=== PATIENT | male | born 1945 | race Asian ===

== ENCOUNTER 2019-01-02 15:14 | Emergency (ER) | payer OTHER ==
[~2019-01-02] VITALS: Ht 172.7 cm; Wt 73.5 kg
[~2019-01-02 15:14] MED LIST: ASPIR 8181 MG PO
[2019-01-02 15:19] VITALS: Ht 172.7 cm; Wt 73.5 kg
[2019-01-02 17:29] LABS: microscopic required? YES; urine erythrocyte TRACE (NEGATIVE)
[2019-01-02 17:45] LABS: CALCIUM 9.6 mg/dL (8.5-10.1); CARBON DIOXIDE 33.5 mmol/L (21-32); CHLORIDE SERUM 100 mmol/L (98-107); CREATININE SERUM 1.3 mg/dL (0.7-1.3); GLUCOSE SERUM 143 mg/dL (74-106); SODIUM SERUM 138 mmol/L (136-145)
[2019-01-02 17:48] LABS: BASOPHIL % 0.4 % (0-2); PLATELET COUNT 307 x10^3mcL (130-400); RED CELL DISTRIBUTION WIDTH 13.4 % (11.5-14.5)
[2019-01-02 17:50] LABS: ALBUMIN 3.7 g/dL (3.4-5.0); ALKALINE PHOSPHATASE 71 U/L (46-116); ALT/SGPT 43 U/L (16-63); AST/SGOT 21 U/L (15-37); BILIRUBIN TOTAL 0.4 mg/dL (0.20-1.00); LIPASE 447 IU/L (73-393); TOTAL PROTEIN, SERUM 8.2 g/dL (6.4-8.2)
[2019-01-02 20:48] VITALS: BP 135/87
== END 2019-01-02 20:18 | disposition home or self-care (01) ==
LOC: ED 15:14
PROVIDERS: Emergency Medicine
DX: N45.3 Epididymo-orchitis (principal); N39.0 Urinary tract infection, site not specified; R74.8 Abnormal levels of other serum enzymes; I10 Essential (primary) hypertension; E11.9 Type 2 diabetes mellitus without complications
CPT/HCPCS: 36415; J1885; J2270

== ENCOUNTER 2019-01-07 12:18 | Inpatient (IN) | payer OTHER ==
[~2019-01-07] VITALS: Ht 175.3 cm; Wt 83.5 kg
[2019-01-07 12:21] VITALS: Ht 175.3 cm; Wt 83.5 kg
--- NOTE | 2019-01-07 12:34 | NUR ---
PT BROUGHT IN TO ED BY SON WITH C/O ABDOMINAL BLOOD IN URINE, PT HAS LAB AND ULTRASOUND ORDERS, ALSO PT C/O SYNCOPAL EPISODE LAST NIGHT. DENIES CP, SOB, NAUSEA VOMITING OR HEAD INJURY. PT PROVIDED URIN SPECIMEN, NO VISIBLE BLOOD NOTED. SON IS INTERPRETING, FOR PT DOES NOT SPEAK EQUATORIAL GUINEAN. AT BEDSIDE PT IS AAOX4, RESPS E/U, SKIN IS PINK, WARN AND DRY. PERRLA. ALSO, PT IS CALM AND COOPERATIVE. PT AMBULATED FROM LOBBY TO ROOM WITH STEADY GAIT AND NO ASSIST. PT PLACED ON MONITOR. PT ORIENTED TO ROOM, USE OF CALL FIELD AND BED IN LOWEST POSITION. BED RAIL IS UP X1 FOR SAFETY.
[2019-01-07 13:07] LABS: BASOPHIL % 0.4 % (0-2); PLATELET COUNT 282 x10^3mcL (130-400); RED CELL DISTRIBUTION WIDTH 13.3 % (11.5-14.5)
[2019-01-07 13:10] LABS: CALCIUM 9.6 mg/dL (8.5-10.1); CARBON DIOXIDE 25.6 mmol/L (21-32); CHLORIDE SERUM 97 mmol/L (98-107); CREATININE SERUM 1.4 mg/dL (0.7-1.3); GLUCOSE SERUM 268 mg/dL (74-106); POTASSIUM SERUM 3.7 mmol/L (3.5-5.1); SODIUM SERUM 135 mmol/L (136-145)
[2019-01-07 13:15] LABS: ALBUMIN 3.8 g/dL (3.4-5.0); ALKALINE PHOSPHATASE 77 U/L (46-116); ALT/SGPT 31 U/L (16-63); AST/SGOT 19 U/L (15-37); BILIRUBIN TOTAL 0.81 mg/dL (0.20-1.00)
[2019-01-07 13:25] LABS: TOTAL PROTEIN, SERUM 8.8 g/dL (6.4-8.2)
[2019-01-07 15:05] VITALS: BP 144/73
--- NOTE | 2019-01-07 15:32 | NUR ---
RECEIVED PATIENT VIA GURNEY FROM ED RN. PATIENT AMBULATED TO BED WITHOUT ASSISTANCE. PATIENT A/0 X4 ON RA, IV TO RIGHT AC, SITE WNL. TELE MONITOR #9 PLACED, SINUS CHRISTIAN WITH PVC'S. ASSESSED PAITENT. COMPLAINING OF MILD PAIN TO GROIN AND UPON URINATION. ADMITTED FOR UTI AND SEPSIS. ASSISTED PATIENT INTO GOWN, SCD'S PLACED. BED IN LOWEST POSITION CALL LIGHT WITHIN REACH. WILL CONTINUE TO MONITOR
--- NOTE | 2019-01-07 16:39 | NUR ---
BS RESULT 191. 3UNIT INSULIN COVERAGE NEEDED. COSIGNED BY RACHELE BURNETT. SQ TO RIGHT UPPER ARM. PATIENT RESTING COMFORTABLY AT THIS TIME. DENIES PAIN, CALL LIGHT WITHIN REACH
[2019-01-07 17:13] VITALS: BP 136/63
--- NOTE | 2019-01-07 18:35 | NUR ---
PATEINT SITTING UP IN BED TO EAT. NO COMPLAINTS AT THIS TIME.
--- NOTE | 2019-01-07 20:00 | NUR ---
RECEIVED PT IN BED, RESTING QUIETLY. ALERT AND ORIENTED. ABLE TO VERBALIZE NEEDS. DENIES HEADACHE/DIZZINESS. RESP. EVEN AND UNLABORED. LUNG SOUNDS CLEAR BILAT. ON ROOM AIR, NO ACUTE DISTRESS NOTED. ON TELE 9, SB, WITH HR 58 AT THIS TIME, DENIES CP OR ANY DISCOMFORT . IVF, NS AT 150ML/HR, NS BOLUS FROM ER, THEN TO START NS AT 70ML/HR. SITE CLEAR. VOIDING FREELY. ASSISTED WITH HS CARE. CALL LIGHT WITHIN REACH. WILL CONTINUE TO MONITOR.
[2019-01-07 20:57] VITALS: BP 136/63
--- NOTE | 2019-01-07 23:02 | NUR ---
DUE MEDS GIVEN ORDERED, FERNANDO. WELL. NO COMPLAINTS NOTED AT THIS TIME. CALL LIGHT WITHIN REACH. WILL CONTINUE TO MONITOR.
--- NOTE | 2019-01-08 01:07 | NUR ---
RESTING QUIETLY WITH EYES CLOSED, APPEARS ASLEEP, EASILY AROUSABLE. RESP. EVEN AND UNLABORED. NO ACUTE DISTRESS NOTED. WILL CONTINUE TO MONITOR.
[2019-01-08 05:39] VITALS: BP 140/68
--- NOTE | 2019-01-08 06:16 | NUR ---
SLEPT MOST OF THE NIGHT. NO SIGNIFICANT CHANGE NOTED IN PT,S CONDITION. AFEBRILE AND VITAL SIGNS STABLE. RESP. EVEN AND UNLABORED, ON ROOM AIR, NO ACUTE DISTRESS NOTED. DENIES CHEST PAIN OR ANY DISCOMFORT AT THIS TIME. IVF INTACT AND INFUSING WELL, SITE CLEAR. VOIDING CLEAR YELLOW COLOR URINE.CALL LIGHT WITHIN REACH. WILL CONTINUE TO MONITOR.
[2019-01-08 06:34] LABS: BASOPHIL % 0.4 % (0-2); PLATELET COUNT 225 x10^3mcL (130-400); RED CELL DISTRIBUTION WIDTH 13.3 % (11.5-14.5)
[2019-01-08 07:08] LABS: CALCIUM 8.7 mg/dL (8.5-10.1); CARBON DIOXIDE 22.1 mmol/L (21-32); CHLORIDE SERUM 105 mmol/L (98-107); GLUCOSE SERUM 140 mg/dL (74-106); POTASSIUM SERUM 4.2 mmol/L (3.5-5.1); SODIUM SERUM 141 mmol/L (136-145)
--- NOTE | 2019-01-08 08:00 | NUR ---
PATIENT RECEIVED ALERT AND ORIENTED AND DENIES PAIN AT THIS TIME. IV INTACT AND PATIENT AHS BEEN URINATING WITHOUT DIFFICULTY. [facility] 500[facility] OF GARTH URINE. NO SEDIMENT OR HEMATURIA NOTED. ELOISA LOWE NOTED LABS OF WBC AT 12.9, AND H AND H OF 9.6/29, AND NA AT 140. PATIENT HAS BEEN ON ROCEPHIN AND VANCO AND NO ADVERSE REACTION NOTED. PATIENT WITH HISTORY OF ACUTE CORONARY SYNDROME. PATIENT HAS VITALS AT THIS TIME AT 98.4, 72, 18, 140/68, 96%. PULSES PALBLE AND NO EDEMA NOTED. DENIES FEELING FAINT OR ANY SYNOCOPAL EPISODE. LAST BLOOD SUGAR AT 138. NOTED PREVIOUS TREATMENT FOR UTI PRIOR THIS HOSPITALIZATION,. THE UA WAS NEGATIVE. WILL CONTINUE TO MONITOR INDICATED.
[2019-01-08 08:50] VITALS: BP 126/62
--- NOTE | 2019-01-08 13:00 | NUR ---
THE ULTRASOUND OF [facility] BLADDER/ABDOMEN SHOWS NEGATIVE SO FAR. PATIENT HAS BEEN DENYING PAIN WITH URINATION AND NO HEMATURIA NOTED.
--- NOTE | 2019-01-08 13:02 | NUR ---
PATIENT HAVING AN ECHO AT THIS TIME. PATIENT HAS BLOOD SUGAR OF 170 AND INSULIN COVERAGE WAS GIVEN. NO COMPLAINTS OF PAIN AT THIS TIME.
[2019-01-08 13:12] VITALS: BP 125/60
--- NOTE | 2019-01-08 15:08 | NUR ---
ULTRASOUND OF THE BLADDER APPEARS NEGATIVE ON THE READING IN THE COMPUTER. THE URINALYSIS IS ALSO NEGATIVE. PATIENT DENIES PAIN AT THIS TIME. WILL CONTINUE TO MONITOR INDICATED.
--- NOTE | 2019-01-08 15:33 | NUR ---
ADVISED THE PATIENT FOR NEED OF URINE SAMPLE AND GAVE NEW URINAL AND ADVISED TO CLL AND STAFF WILL SEND TO THE LAB.
[2019-01-08 17:25] LABS: microscopic required? NO
[2019-01-08 17:47] LABS: urine erythrocyte NEGATIVE (NEGATIVE)
--- NOTE | 2019-01-08 18:10 | NUR ---
GIOVANNILOD SUGAR AT DINNER AT 160 AND GAVE THREE UNITS OF REGULAR.
[2019-01-08 18:41] VITALS: BP 132/61
--- NOTE | 2019-01-08 19:39 | NUR ---
PT RECIEVED AAO REG RESP NO SOB V/S STABLE,KEPT CLEAN AND DRY TO TOUCH,IV INFUSING WELL WITH THE SITE PATENT AND INTACT,PT ON TELE MONITOR AND IN SINUS CHRISTIAN WITH PVCS,NO CHEST PAIN AT THIS TIME,KEPT CLEAN AND DRY TO TOUCH,CALL LIGHT EASY REACHED AND WILL CONTINUE TO MONITOR.
[2019-01-08 20:52] VITALS: BP 126/59
[2019-01-09 05:01] VITALS: BP 126/58
--- NOTE | 2019-01-09 06:13 | NUR ---
PT HAD A RESTING NIGHT NO CHANGE AT THID TIME AND WILL CONTINUE TO MONOITOR.
[2019-01-09 06:24] LABS: CALCIUM 8.6 mg/dL (8.5-10.1); CARBON DIOXIDE 26.3 mmol/L (21-32); CHLORIDE SERUM 107 mmol/L (98-107); GLUCOSE SERUM 130 mg/dL (74-106); POTASSIUM SERUM 4.1 mmol/L (3.5-5.1); SODIUM SERUM 140 mmol/L (136-145)
[2019-01-09 06:27] LABS: BASOPHIL % 0.5 % (0-2); PLATELET COUNT 231 x10^3mcL (130-400); RED CELL DISTRIBUTION WIDTH 13.5 % (11.5-14.5)
--- NOTE | 2019-01-09 07:15 | NUR ---
RECEIVED BEDSIDE REPORT FROM CLINICAL DOCUMENTATION SPEC NURSE AT THIS TIME. PATIENT RESTING COMFORTABLY IN BED. NO APPARENT DISTRESS OR DISCOMFORT NOTED. BREATHING EVEN AND UNLABORED. NO RESPIRATORY DISTRESS NOTED. NO INDICATION OF SHORTNESS OF BREATH. PATIENT DENIES CHEST PAIN/PRESSURE AT THIS TIME. IV PATENT AND INTACT. ALL QUESTIONS AND CONCERNS ADDRESSED. ALL NEEDS ATTENDED TO. WILL CONTINUE TO MONITOR
[2019-01-09 09:11] VITALS: BP 149/74
--- NOTE | 2019-01-09 10:19 | NUR ---
ALL MORNING MEDICATIONS ADMINISTERED. PATIENT TOLERATED WELL. NO ADVERSE EFFECT NOTED. ALL NEEDS ATTENDED TO. WILL CONTINUE TO MONITOR
--- NOTE | 2019-01-09 11:37 | NUR ---
REPORTED TO PATIENCE REYES PATIENT POTASSIUM 4.1. PER PATIENCE REYES SHE WILL D/C POTASSIUM 40MEQ ORDER. AWAITING ORDER TO D/C. WILL HOLD MEDICATION.
[2019-01-09 12:33] VITALS: BP 143/69
--- NOTE | 2019-01-09 12:52 | NUR ---
BLOOD SUGAR 204. 6 UNITS INSULIN REQUIRED (SEE EMAR). PATIENT TOLERATED WELL. NO ADVERSE EFFECTS NOTED. ALL NEEDS ATTENDED TO. WILL CONTINUE TO MONITOR
--- NOTE | 2019-01-09 13:46 | NUR ---
IV TO RIGHT AC ACCIDENTALLY PULLED OUT. NEW IV TO LEFT WRIST PLACE. PATENT AND INTACT WITH GOOD BLOOD RETURN. WILL CONTINUE TO MONITOR
--- NOTE | 2019-01-09 17:00 | NUR ---
BLOOD SUGAR 103 WITH NO INSULIN COVERAGE REQUIRED. ALL NEEDS ATTENDED TO. WILL CONTINUE TO MONITOR
[2019-01-09 17:44] VITALS: BP 138/63
--- NOTE | 2019-01-09 19:25 | NUR ---
PATIENT RESTING COMFORTABLY IN BED. NO APPARENT DISTRESS OR DISCOMFORT NOTED. BREATHING EVEN AND UNLABORED. IV PATENT AND INTACT. ALL QUESTIONS AND CONCERNS ADDRESSED. SAFETY PRECAUTIONS IN PLACE. ENDORSED ALL CARE TO FORESTRY INSTRUCTOR NURSE
--- NOTE | 2019-01-09 19:56 | NUR ---
Awake and verbally responsive. No respiratory distress noted on room air. Denies pain. Denies n/v. Will cont.to monitor. Call light within reach.
[2019-01-09 21:19] VITALS: BP 142/65
--- NOTE | 2019-01-10 04:03 | NUR ---
Afebrile. No significant change in condition noted. Medicated as ordered for c/o testicular pain, toradol IV given with relief. In no apparent distress. Voiding, ambulating.
[2019-01-10 06:04] VITALS: BP 145/61
[2019-01-10 06:31] LABS: BASOPHIL % 0.6 % (0-2); PLATELET COUNT 238 x10^3mcL (130-400); RED CELL DISTRIBUTION WIDTH 13.6 % (11.5-14.5)
[2019-01-10 06:36] LABS: CALCIUM 9.2 mg/dL (8.5-10.1); CARBON DIOXIDE 26.5 mmol/L (21-32); CHLORIDE SERUM 104 mmol/L (98-107); GLUCOSE SERUM 117 mg/dL (74-106); POTASSIUM SERUM 4.3 mmol/L (3.5-5.1); SODIUM SERUM 140 mmol/L (136-145)
--- NOTE | 2019-01-10 08:03 | NUR ---
ASLEEP ON INITAL ROUNDS AT 0730. HAVING BREAKFAST AT THIS TIME. NS AT 70CC/HR INFUSING PERIPHERALLY. INSTRUCTED TO CALL RN FOR ANY NEED. CALL FIELD WITHIN REACH.
[2019-01-10 08:48] VITALS: BP 143/60
--- NOTE | 2019-01-10 12:04 | NUR ---
DENIES ANY DISCOMFORT.
--- NOTE | 2019-01-10 14:49 | NUR ---
RECEIVED PT IN BED. RESP EQUAL AND UNLABORED, NO DISCOMFORT REPORTED. WILL CONTINUE TO MONITOR
[2019-01-10 17:59] VITALS: BP 150/64
--- NOTE | 2019-01-10 18:49 | NUR ---
PT IN BED. RESP EQUAL AND UNLABORED, NO DISTRESS REPORTED. WILL ENDORSE TO ONCOMING SHIFT
--- NOTE | 2019-01-10 20:02 | NUR ---
PT RECIEVED AAO REG RESP NO SOB V/S STABLE,IV INFUDING WELL WITH THE SITE PATENT AND INTACT,NO PAIN REPORTED AT THIS TIME,KEPT CLEAN AND DRY TO TOUCH,CALL LIGHT EASY REACHED AND WILL CONTINUE TO MONITOR.
[2019-01-10 21:43] VITALS: BP 137/56
--- NOTE | 2019-01-11 01:18 | NUR ---
PT SLEEOING AT HTIS TIME,WILL CONTINUE TO MONITOR.
[2019-01-11 05:37] VITALS: BP 133/52
[2019-01-11 06:17] LABS: BASOPHIL % 0.2 % (0-2); PLATELET COUNT 238 x10^3mcL (130-400); RED CELL DISTRIBUTION WIDTH 13.3 % (11.5-14.5)
--- NOTE | 2019-01-11 06:24 | NUR ---
PT HAD A RESTING NIGHT NO CHANGE AT THIS TIME,WILL CONTINUE TO MONITOR.
[2019-01-11 06:47] LABS: CALCIUM 8.8 mg/dL (8.5-10.1); CARBON DIOXIDE 29.4 mmol/L (21-32); CHLORIDE SERUM 106 mmol/L (98-107); CREATININE SERUM 0.9 mg/dL (0.7-1.3); GLUCOSE SERUM 132 mg/dL (74-106); POTASSIUM SERUM 4.1 mmol/L (3.5-5.1); SODIUM SERUM 142 mmol/L (136-145)
--- NOTE | 2019-01-11 07:57 | NUR ---
RECEIVED PATIENT FROM LEX DAMON. PATIENT RESTING IN BED, NO SIGNS OF PAIN OR DISCOMFORT. WILL CONTINUE TO MONITOR. INFORMED PATIENT ABOUT PLAN OF CARE FOR TODAY, PATIENT GETURES UNDERSTANDING. CALL LIGHT IN REACH AT THIS TIME.
[2019-01-11 08:02] VITALS: BP 133/52
[2019-01-11 10:14] VITALS: BP 139/67
[2019-01-11] MEDS ORDERED: BD LACTINEX1.4 MG PO (10:31)
[2019-01-11] MEDS ORDERED: BAC PO (10:52)
--- NOTE | 2019-01-11 11:15 | NUR ---
PATIENT CLEARED FOR DISCHARGE FROM PATIENCE REYES. DISCHARGE INSTRUCTIONS AND PACKET GIVEN TO PATIENT AND FAMILY, PRESCRIPTIONS GIVEN. ALL QUESTIONS ANSWERED AND ADDRESSED. IV CATHERTER REMOVED AND INTACT. PATIENT AND FAMILY W BELONGINGS ESCORTED DOWNSTAIRS VIA WHEELCHAIR WITH JANNIE DUONG.
== END 2019-01-11 11:15 | disposition home or self-care (01) | DRG 872 ==
LOC: ED 12:18 → MU 13:41 → DU 13:41 → MU 01-09 15:53
PROVIDERS: Emergency Medicine; General Practice; ADMIT Internal Medicine
DX: A41.9 Sepsis, unspecified organism (principal); N39.0 Urinary tract infection, site not specified; B96.29 Other Escherichia coli [E. coli] as the cause of diseases classified elsewhere; E11.9 Type 2 diabetes mellitus without complications; R31.9 Hematuria, unspecified; N45.2 Orchitis; I10 Essential (primary) hypertension; Z68.24 Body mass index [BMI] 24.0-24.9, adult; Z79.84 Long term (current) use of oral hypoglycemic drugs
CPT/HCPCS: 82962; G0378; J0696; J1815; J1885; J3370; J7030; Q0092

== ENCOUNTER 2019-05-22 19:05 | Inpatient (IN) | payer OTHER ==
[~2019-05-22] VITALS: Ht 172.7 cm; Wt 74.8 kg
[~2019-05-22 19:05] MED LIST changes: +BAC PO; +BD LACTINEX1.4 MG PO
[2019-05-22 20:15] LABS: BASOPHIL % 0.4 % (0-2); PLATELET COUNT 175 x10^3mcL (130-400); RED CELL DISTRIBUTION WIDTH 13.8 % (11.5-14.5)
[2019-05-22 20:20] LABS: CALCIUM 9.4 mg/dL (8.5-10.1); CARBON DIOXIDE 27.9 mmol/L (21-32); CHLORIDE SERUM 103 mmol/L (98-107); CREATININE SERUM 1.3 mg/dL (0.7-1.3); GLUCOSE SERUM 120 mg/dL (74-106); POTASSIUM SERUM 4.2 mmol/L (3.5-5.1); SODIUM SERUM 142 mmol/L (136-145)
[2019-05-22 20:25] LABS: ALKALINE PHOSPHATASE 70 U/L (46-116); ALT/SGPT 25 U/L (16-63); AST/SGOT 22 U/L (15-37); BILIRUBIN TOTAL 0.36 mg/dL (0.20-1.00); TOTAL PROTEIN, SERUM 7.9 g/dL (6.4-8.2)
[2019-05-22 23:06] LABS: CHOLESTEROL/HDL RATIO 2.5
[2019-05-23] VITALS (7 sets, daily range): BP systolic 114–136; BP diastolic 59–79
[2019-05-23 06:23] LABS: TOTAL IRON BINDING CAPACITY 286 ug/dL (250-450)
[2019-05-23 06:27] LABS: CALCIUM 8.6 mg/dL (8.5-10.1); CARBON DIOXIDE 26.1 mmol/L (21-32); CHLORIDE SERUM 104 mmol/L (98-107); CREATININE SERUM 1.2 mg/dL (0.7-1.3); GLUCOSE SERUM 234 mg/dL (74-106); MAGNESIUM 1.5 mg/dL (1.8-2.4); PLATELET COUNT 163 x10^3mcL (130-400); POTASSIUM SERUM 4.2 mmol/L (3.5-5.1); RED CELL DISTRIBUTION WIDTH 13.9 % (11.5-14.5); SODIUM SERUM 140 mmol/L (136-145)
[2019-05-23 06:40] LABS: BASOPHIL % 0 % (0-2)
[2019-05-23 06:47] LABS: IRON 194 ug/dL (65-170)
[2019-05-24 05:15] VITALS: BP 122/60
[2019-05-24 06:25] LABS: BASOPHIL % 0.3 % (0-2); PLATELET COUNT 152 x10^3mcL (130-400); RED CELL DISTRIBUTION WIDTH 14.2 % (11.5-14.5)
[2019-05-24 06:26] LABS: CALCIUM 8.2 mg/dL (8.5-10.1); CARBON DIOXIDE 28.5 mmol/L (21-32); CHLORIDE SERUM 108 mmol/L (98-107); CREATININE SERUM 1.2 mg/dL (0.7-1.3); GLUCOSE SERUM 116 mg/dL (74-106); MAGNESIUM 1.5 mg/dL (1.8-2.4); PHOSPHOROUS 4.1 mg/dL (2.5-4.9); POTASSIUM SERUM 4.1 mmol/L (3.5-5.1); SODIUM SERUM 143 mmol/L (136-145)
[2019-05-24 09:20] VITALS: BP 136/71
[2019-05-24 09:55] VITALS: BP 112/61
[2019-05-24] MEDS ORDERED: LIPI20 PO (11:32)
[2019-05-24] MEDS ORDERED: ZESTRIL5 MG PO (11:32)
[2019-05-24] MEDS ORDERED: ZITHROMAX TRI-500 MG PO (11:33)
[2019-05-24 11:52] VITALS: BP 112/61
[2019-05-24 12:20] VITALS: BP 142/77
== END 2019-05-24 15:25 | disposition home or self-care (01) | DRG 192 ==
LOC: ED 19:05 → DU 21:37
PROVIDERS: Emergency Medicine; ADMIT Internal Medicine
DX: J44.1 Chronic obstructive pulmonary disease with (acute) exacerbation (principal); J06.9 Acute upper respiratory infection, unspecified; E11.65 Type 2 diabetes mellitus with hyperglycemia; D50.9 Iron deficiency anemia, unspecified; I10 Essential (primary) hypertension; E78.5 Hyperlipidemia, unspecified; Z87.891 Personal history of nicotine dependence
CPT/HCPCS: 36600; 82962; 83880; 94150; G0378; J1815; J1956; J2930; J3475; J7030; J7620; J7633; Q0092